=== PATIENT | female | born 1985 | race Caucasian/White ===

== ENCOUNTER 2018-10-08 21:04 | Emergency (ER) | payer OTHER ==
[~2018-10-08] VITALS: Ht 162.6 cm; Wt 44.9 kg
[2018-10-08 21:25] VITALS: BP 121/69
[2018-10-08] MEDS ORDERED: Surgicel 4in x 8in TOPIC ONE (21:30)
--- NOTE | 2018-10-08 21:31 | Emergency Room Report ---
History of Present Illness General Chief Complaint: Laceration Source: Patient Present Illness HPI Is a 33-year-old female who is right-hand dominant. She presents with chief complaint of laceration to the tip of her left fifth finger. Onset tonight. She was cutting food and cut the tip of her finger off. No other injury. Bleeding stopped. Immunizations up-to-date. No other complaint. Throbbing pain. Allergies: Coded Allergies: No Known Allergies (Unverified , 10/08/18) Patient History Past Medical History: see triage record, old chart reviewed Past Surgical History: none Pertinent Family History: none Social History: Denies: smoking Last Menstrual Period: 10/01 Now: No Immunizations: UTD Reviewed Nursing Documentation: PMH: Agreed; PSxH: Agreed Nursing Documentation-PMH Past Medical History: No Stated History Review of Systems Eye: Denies: eye pain, blurred vision ENT: Denies: ear pain, nose congestion, throat swelling Respiratory: Denies: cough, shortness of breath Cardiovascular: Denies: chest pain, palpitations Gastrointestinal: Denies: abdominal pain, diarrhea, nausea, vomiting Musculoskeletal: Reports: muscle pain; Denies: back pain, joint pain Skin: Denies: rash Neurological: Denies: headache, numbness Endocrine: Denies: increased thirst, increased urine Hematologic/Lymphatic: Denies: easy bruising All Other Systems: negative except mentioned in HPI Physical Exam Vital Signs Date Time Temp Pulse Resp B/P (MAP) Pulse Ox O2 Delivery O2 Flow Rate FiO2 10/08/18 21:07 98.1 93 18 121/69 95 vitals normal Sp02 EP Interpretation: reviewed, normal General Appearance: well appearing, no apparent distress, alert Head: normocephalic, atraumatic Eyes: bilateral eye PERRL, bilateral eye EOMI ENT: hearing grossly normal, normal pharynx Neck: full range of motion, supple, no meningismus Respiratory: chest non-tender, lungs clear, normal breath sounds Cardiovascular #1: regular rate, rhythm, no murmur Gastrointestinal: normal bowel sounds, non tender, no mass, no organomegaly, no bruit, non-distended Musculoskeletal: back normal, gait/station normal, normal range of motion, other - Left fifth finger: There is a fingertip skin avulsion/amputation. No bony injury. Full range of motion of the MCP, PIP, DIP joint. Capillary refill less than 2 seconds. Neurologic: alert, oriented x3 Psychiatric: mood/affect normal Skin: warm/dry Medical Decision Making Diagnostic Impression: Primary Impression: Avulsion, finger tip Qualified Codes: S61.209A - Unspecified open wound of unspecified finger without damage to nail, initial encounter ER Course Patient with a fingertip skin avulsion. No vomiting of the bone. Pressure dressing placed. We'll discharge home. Nothing to be sutured. Last Vital Signs Date Time Temp Pulse Resp B/P (MAP) Pulse Ox O2 Delivery O2 Flow Rate FiO2 10/08/18 21:07 98.1 93 18 121/69 95 Status: improved Disposition: HOME, SELF-CARE Condition: Stable Patient Instructions: Nonsutured Laceration Care Additional Instructions: Patient dressing to the wound. Keep it clean. Follow-up your doctor in 2-5 days for recheck. Return if worse. Edis Sales MD Oct 08, 2018 21:31
[2018-10-08 21:39] VITALS: BP 121/69
== END 2018-10-08 22:06 | disposition home or self-care (01) ==
LOC: EMR 21:45
DX: S61.217A Laceration without foreign body of left little finger without damage to nail, initial encounter (principal); W26.8XXA Contact with other sharp object(s), not elsewhere classified, initial encounter; Y92.9 Unspecified place or not applicable
CPT/HCPCS: 99281